=== PATIENT | male | born 1935 | race Caucasian/White ===

== ENCOUNTER 2021-05-01 09:23 | Day surgery (SDC) | payer OTHER ==
[~2021-05-01] VITALS: Ht 182.9 cm; Wt 117.4 kg
[2021-05-01] VITALS (7 sets, daily range): BP systolic 130–146; BP diastolic 64–81
[~2021-05-01 09:23] MED LIST: ASPI-611 PO; CYCL-1 PO; HYDR-3972 PO; METF500T PO; NAPR-56 PO; OMEG10006 PO; OMEP40CA21 PO; SERT50TA PO; SIMV-42 PO; VALS1TAB8 PO
[2021-05-01] MEDS ORDERED: GABA-530 PO (11:31)
[2021-05-01] MEDS ORDERED: ACET-1025 PO (11:31)
[2021-05-01] MEDS ORDERED: FLO0.4C PO (11:31)
[2021-05-01] MEDS ORDERED: NORT10CA5 PO (11:31)
[2021-05-01] MEDS ORDERED: LOSA100T57 PO (11:31)
[2021-05-01] MEDS ORDERED: RIVA20TA PO (11:31)
== END 2021-05-01 11:40 | disposition home or self-care (01) ==
LOC: SSTAY O 09:23
PROVIDERS: ATTEND Radiology Vascular & Interventional Radiology
DX: K11.8 Other diseases of salivary glands (principal); D11.0 Benign neoplasm of parotid gland; E11.9 Type 2 diabetes mellitus without complications; I10 Essential (primary) hypertension; I48.91 Unspecified atrial fibrillation; Z88.8 Allergy status to other drugs, medicaments and biological substances; Z79.899 Other long term (current) drug therapy; Z79.82 Long term (current) use of aspirin; Z79.84 Long term (current) use of oral hypoglycemic drugs
CPT/HCPCS: 10005